=== PATIENT | male | born 1945 | race Caucasian/White ===

== ENCOUNTER → 2021-06-11 10:50 | Outpatient (CLI) | payer MEDICARE, SELFPAY ==
--- NOTE | ~2021-06-11 | XR_ITS ---
EXAMINATION: XR foot LT min 3V DATE: 06/11/2021 11:25 INDICATION: Left foot pain medial to the great toe. TECHNIQUE: Dorsoplantar, two oblique and lateral views of the left foot were obtained. COMPARISON: None. FINDINGS: Mild hallux valgus. No fracture. Mild osteoarthritis at the first metatarsophalangeal and several [place] metatarsal and interphalangeal joints. Moderate-sized plantar calcaneal spur. Small amount of ent hesopathic ossification at the distal Achilles tendon. Additional dystrophic calcification medial to the head of the first metatarsal likely along the medial collateral ligament. No cortical erosions or periosteal reaction. Soft tissues are otherwise unremarkable. IMPRESSION: 1. No acute osseous abnormality. 2. Dystrophic calcifications medial to the head of the first metatarsal likely along the medial colla teral ligament which could be related to chronic trauma or enthesopathy. Differential would also incl ude crystalline deposition disease including gout or CPPD although there are no evident cortical eros ions to more specifically suggest this. Reviewed, dictated and finalized at location A. 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 No acute osseous abnormality. 2. Dystrophic calcifications medial to the head of the first metatarsal likely along the medial collateral ligament which could be related to chronic trauma o r enthesopathy. Differential would also include crystalline deposition disease including gout or CPPD although there are no evident cortical erosions to more specifically suggest this.
--- NOTE | ~2021-06-11 | XR_ITS ---
XR knee LT 3V DATE: 06/11/2021 11:25 INDICATION: Left knee pain TECHNIQUE: [place] and standing AP and lateral views COMPARISON: None FINDINGS: There is enthesopathy of the superior pole of patella at the quadriceps tendon insertion. There is mild osteoarthritis at all 3 compartments. There is prominent chondrocalcinosis of the knee joint. No fracture, dislocation, periosteal reaction or bone destruction or radiopaque intra-articular loose body is evident. IMPRESSION: Chondrocalcinosis Mild tricompartment osteoarthritis Reviewed, dictated and finalized at location B. N RESOURCES MANAGER
== END ==
PROVIDERS: PCP Internal Medicine; Visit Provider Internal Medicine
DX: M17.12 Unilateral primary osteoarthritis, left knee (principal); M11.262 Other chondrocalcinosis, left knee
CPT/HCPCS: 73562; 73630

== ENCOUNTER 2023-09-11 09:39 | Outpatient (CLI) | payer MEDICARE, SELFPAY ==
[2023-09-11 19:33] LABS: Basophils Absolute Auto 0.1 K/mm3 (0.0-0.1); Basophils Percent Auto 1.2 % (0.2-1.2); Eosinophils Absolute Auto 0.1 K/mm3 (0-0.3); Eosinophils Percent Auto 1.9 % (0-4.4); Hematocrit 41.3 % (42.0-52.0); Hemoglobin 13.1 g/dL (14.0-18.0); Immature Granulocyte Absolute 0.01 K/mm3 (0.00-0.031); Immature Granulocyte Percent A 0.2 % (0-0.5); Lymphocytes Absolute Auto 1.76 K/mm3 (0.9-3.2); Lymphocytes Percent Auto 34.2 % (18.3-44.2); Mean Corpuscular HGB Conc 31.7 g/dl (32-36); Mean Corpuscular Hemoglobin 29.9 pg (26-34); Mean Corpuscular Volume 94.3 fl (80-100); Mean Platelet Volume 11.1 fl (7.4-10.4); Monocytes Absolute Auto 0.3 K/mm3 (0.1-0.6); Monocytes Percent Auto 6.4 % (2.6-8.5); Neutrophils Absolute Auto 2.9 K/mm3 (1.3-6.7); Neutrophils Percent Auto 56.1 % (45.5-73.1); Platelet Count Result 231 k/mm3 (150-375); Red Blood Count 4.38 M/mm3 (4.6-6.20); Red Cell Distribution Width 13.2 % (11.5-14.5); White Blood Count 5.1 K/mm3 (4.5-10.0)
[2023-09-11 20:15] LABS: Alanine Aminotransferase 18 U/L (6-50); Albumin Level 4.1 g/dL (3.5-5.1); Alkaline Phosphatase 56 U/L (38-126); Anion Gap 6 mmol/L (4-12); Aspartate Amino Transferase 27 U/L (17-59); Bilirubin,Total 0.6 mg/dL (0.2-1.3); Blood Urea Nitrogen 18 mg/dL (9-20); Calcium 9.7 mg/dL (8.4-10.2); Carbon Dioxide 30 mmol/L (22-30); Chloride 105 mmol/L (98-107); Estimated Glomerular Filt Rate > 60; Glucose 98 mg/dL (65-110); Potassium 4.7 mmol/L (3.4-5.0); Sodium 141 mmol/L (137-145)
== END 2023-09-11 09:40 | disposition home or self-care (01) ==
PROVIDERS: PCP Nurse Practitioner Family; Visit Provider Nurse Practitioner Family
DX: F41.9 Anxiety disorder, unspecified (principal); D64.9 Anemia, unspecified; I10 Essential (primary) hypertension
CPT/HCPCS: 36415; 80053; 85025